=== PATIENT | female | born 1980 | race Caucasian/White ===

== ENCOUNTER 2022-08-26 12:12 | Emergency (ER) | payer OTHER ==
[~2022-08-26] VITALS: Ht 157.5 cm; Wt 64.3 kg
[2022-08-26] MEDS ORDERED: LEXA1TAB2 PO (12:26)
[2022-08-26] MEDS ORDERED: PROP80CA PO (12:26)
[2022-08-26] MEDS ORDERED: LYRI150C PO (12:26)
[2022-08-26] MEDS ORDERED: CYCLOBENZAPRINE 5MG TABLET PO ONE (15:05)
[2022-08-26] MEDS ORDERED: KETOROLAC 30 MG/ML 1ML VIAL IM ONE (15:05)
[2022-08-26] MEDS ORDERED: GABAPENTIN 300 MG CAP PO ONE (15:05)
[2022-08-26] MEDS ORDERED: NEUR300C PO (15:38)
[2022-08-26] MEDS ORDERED: CYCL-707 PO (15:38)
[2022-08-26 15:43] VITALS: BP 129/88
== END 2022-08-26 15:45 | disposition home or self-care (01) ==
LOC: M ED 12:12
DX: M54.2 Cervicalgia (principal); I10 Essential (primary) hypertension; Z88.8 Allergy status to other drugs, medicaments and biological substances; Z79.899 Other long term (current) drug therapy
CPT/HCPCS: 72125; 96372; 99283; J1885

== ENCOUNTER → 2023-04-21 | Outpatient (CLI) | payer OTHER ==
[~2023-04-21] MED LIST: CYCL-707 PO; LEXA1TAB2 PO; LYRI150C PO; NEUR300C PO; PROP80CA PO
== END ==
LOC: M WUC 13:25
PROVIDERS: ATTEND Nurse Practitioner Family
DX: M25.561 Pain in right knee (principal)